=== PATIENT | male | born 1950 | race Caucasian/White ===

== ENCOUNTER 2018-09-19 08:03 | Emergency (ER) | payer MEDICARE, SELFPAY ==
[2018-09-19 08:04] VITALS: BP 142/80; PULSE 74; RESP 14; TEMP 36.7; O2SAT 98; BMI 25.3
[2018-09-19 08:15] VITALS: O2SAT 99
--- NOTE | 2018-09-19 08:20 | EKG12_ITS ---
Test Reason : DIZZINESS Blood Pressure : / mmHG Vent. Rate : 068 BPM Atrial Rate : 068 BPM P-R Int : 186 ms QRS Dur : 086 ms QT Int : 440 ms P-R-T Axes : 060 -12 023 degrees QTc Int : 467 ms Normal sinus rhythm Nonspecific ST and T wave abnormality Prolonged QT Abnormal ECG Confirmed by DAVID SWANSON, AMIRA ([id number]), society editor RAOUL SPRINGER ([id number]) on 09/25/2018 8:51:21 AM Referred By: CRISTIN Confirmed By:AMIRA HERNANDEZ MD
--- NOTE | 2018-09-19 08:22 | RAD_ITS ---
STUDY: X-RAY CHEST REASON FOR EXAM: Male, 67 years old. Chest pain and dizziness TECHNIQUE: Single AP portable view of the chest. COMPARISON: None. FINDINGS: The lungs are clear and expanded. There is no demonstrated pleural abnormality. Normal size heart. Normal mediastinum and yaneth. Normal visualized pulmonary arteries. Normal visualized aortic arch and descending thoracic aorta. Normal visualized thoracic spine. Normal visualized ribs, clavicles, and shoulders. There is no demonstrated abnormality of the visualized soft tissue structures of the upper abdomen. RAD/Chest 1 View (Portable) IMPRESSION: Normal x-ray examination of the chest. Electronically Signed: Madeleine Flowers, at 8:42 EST Tel , Service support ,
[2018-09-19] MEDS: 0.9% Normal Saline 1,000 ML 150 ML IV (08:30)
[2018-09-19 08:41] LABS: Basophil# 0.05 X10^3/uL; Basophil% 1.1 % (0-1); Eosinophil# 0.13 X10^3/uL; Eosinophils% 2.9 % (0-5); Hematocrit 42.3 % (40-54); Hemoglobin 13.6 g/dl (13.0-16.5); Lymphocyte % 18.1 % (19-41); Mean Corp Hgb Conc 32.2 g/gl (32-36); Mean Corpuscular Hgb 29.5 pg (27.0-32.0); Mean Corpuscular Volume 91.8 fL (80-94); Mean Platelet Vol. 8.8 fl (6.2-12.0); Monocyte# 0.39 X10^3/uL; Monocyte% 8.8 % (0-10); Neutrophil # 3.04 X10^3/uL (2.7-7.7); Neutrophil % 68.9 % (47-70); Platelet Count 144 K/mm3 (150-450); RBC Distribution Width CV 12.8 % (11.6-14.6); RBC Distribution Width SD 42.6 fl (35.1-43.9); Red Blood Count 4.61 M/mm3 (4.6-6.2); White Blood Count 4.4 K/mm3 (4.4-11.0)
[2018-09-19 08:42] LABS: POSITIVE COUNT NO; POSITIVE DIFFERENTIAL NO; POSITIVE MORPHOLOGY NO
[2018-09-19 08:54] LABS: Anion Gap 6 (5-15); BUN 18 mg/dL (7-18); BUN/Creat Ratio 20.1 RATIO (10-20); Calcium,Total 8.5 mg/dL (8.5-10.1); Chloride 107 mmol/L (98-107); Creatinine, Serum 0.89 mg/dL (0.70-1.30); EST Glomerular Filtration Rate 90 mL/min (>60); Est Glom Filt Rate - Afr Amer 109 mL/min (>60); Glucose 100 mg/dL (74-106); Potassium 4.2 mmol/L (3.5-5.1); Sodium Level 141 mmol/L (136-145)
[2018-09-19 09:21] VITALS: BP 140/74; PULSE 63; RESP 15; O2SAT 98
[2018-09-19 09:22] VITALS: BP 129/70; BP 132/83; BP 140/80; PULSE 59; PULSE 60; PULSE 64
--- NOTE | 2018-09-19 09:40 | ED.DCSUM_ITS ---
- ER Visit Summary Date of Service: 09/19/18 Chief Complaint: Chest pain History of Present Illness: The patient is a [address] Kelley. He has chest pain began 2 weeks ago. Some intermittent pain last minutes at a time. He describes it as dull and aching. 3-10 hours and is pain-free currently. He nothing makes this worse including exertion or breathing. She relieved by laying on the floor. He denies any associated nausea, vomiting, diaphoresis, shortness of breath. Does report that he gets lightheaded and palpitations. However, this does not seem to be at the same time he is having chest pain. Physical Examination: Vitals: Stable. Afebrile. General: Well-nourished and well-developed. Head: Normocephalic atraumatic. Neck: Supple, no lymphadenopathy. No JVD. Nontender. Cardiovascular: Regular rate and rhythm. No murmurs. Respiratory: No respiratory distress. Clear to auscultation bilaterally. Abdominal: Soft, nontender, nondistended, normal bowel sounds. No guarding, rebound, or peritoneal signs. Back: Nontender. Extremities: Nontender, no edema. Skin: Normal color, no rash. Neurologic: Alert and oriented ?3. Cranial nerves II through XII are intact. Normal strength and sensation. Psych: Normal affect. Test Results: EKG is sinus at [address] changes. His QTC is 467. There is no old EKG for comparison. Troponin is negative. Chem-7 is normal. CBC is more for platelets of 144 lymphs lites of 18. Chest x-ray is normal. Emergency Department Course and Treatment: Patient's resting comfortably. His orthostatic vital signs were negative he was given aspirin p.o. Treatment Plan: Had a prolonged discussion with patient that I feel that he needs a stress test. He does not want to be admitted to the hospital. He would like to have this done as an outpatient. He will be discharged instructions to follow-up his primary care physician as soon as possible to arrange a stress test. If he develops any further chest pain or symptoms prior to that he should return to emerge department be admitted for an inpatient stress test. He does understand this. Disposition: To home in improved and stable condition. Impression: 1. Atypical chest pain. 2. YANNI score 1. This note was generated with [employer] dictation software. It may contain incorrect words, spelling, and punctuation that were not noted in review of the chart prior to signing ED Disposition - Plan for ED Patient: Disposition: Home or Assisted Living Instructions: ED Chest Pain Atypical Unkn Cause Referrals: Sulema Jalloh MD [Primary Care Provider] - As soon as possible Additional Instructions: Take a baby aspirin every day.
[2018-09-19 10:22] VITALS: BP 141/81; PULSE 74; RESP 16; O2SAT 99
== END 2018-09-19 10:23 | disposition home or self-care (01) ==
LOC: ED 08:35
PROVIDERS: Emergency Provider Emergency Medicine; Family Provider Internal Medicine; PCP Internal Medicine
DX: R07.89 Other chest pain (principal); G47.33 Obstructive sleep apnea (adult) (pediatric)
CPT/HCPCS: 71045; 80048; 84484; 85025; 93005; 96360; 96361; 99285; J7030; A4216

== ENCOUNTER → 2019-08-05 06:15 | Outpatient (CLI) | payer MEDICARE, SELFPAY ==
--- NOTE | 2019-08-05 16:20 | STRESSREP_ITS ---
Stress Test Report Pharmacologic myocardial perfusion stress test. 68-year-old man with a history of chest tightness, shortness of breath and fatigue. Stress protocol: Resting EKG demonstrates sinus bradycardia with a rate of 53 bpm normal intervals are noted resting blood pressures 140/78 mmHg. 0.4 mg of regadenoson was infused per usual protocol followed Intravenous saline flush injection continuous EKG monitoring was performed. The maximum heart rate attained was 87 bpm which was 57% of maximum predicted heart rate the maximum workload was 1 metabolic equivalent. At rest there were no ST or T wave changes noted suggest abnormal flow reserve at peak infusion nonspecific ST-T wave changes were noted with no meet criteria for ischemia. Resting blood pressure was 140/78 final blood pressure 118/62. Myocardial perfusion protocol per 11.2 mCi of technetium 99m sestamibi was injected at rest. 0.4 mg of regadenoson was infused per usual protocol peak infusion 32.3 mCi of technetium 99m sestamibi was injected stress images were obtained stress and rest images were reconstructed and compared in the short axis vertical and horizontal long a xis. Gated images were also obtained Perfusion SPECT analysis: Review of the images demonstrate normal uptake of tracer noted in all areas of myocardium. The rest images similar demonstrate normal uptake of tracer noted in all areas of the myocardium. No areas of reversibility are noted suggest ischemia no previous infarct is noted. Gated SPECT analysis: The gated ejection fraction is noted to be 59%. Conclusion: Normal pharmacologic myocardial perfusion stress test. Preserved ejection fraction.
== END ==
PROVIDERS: Family Provider Family Medicine; PCP Family Medicine; Referring Provider Nurse Practitioner Family; Visit Provider Nurse Practitioner Family
DX: R06.02 Shortness of breath (principal); R07.89 Other chest pain; R00.2 Palpitations; R42 Dizziness and giddiness; R53.83 Other fatigue
CPT/HCPCS: 78452; 93017; A9500; A4216; J2785

== ENCOUNTER → 2019-09-27 | Outpatient (CLI) | payer MEDICARE, SELFPAY ==
--- NOTE | 2019-09-27 13:08 | RAD_ITS ---
STUDY: X-RAY - LUMBAR SPINE REASON FOR EXAM: Male, 68 years old. LBP RADIATING TO LEFT HIP TECHNIQUE: 3 view(s) of the lumbar spine were obtained. COMPARISON: None FINDINGS: Normal lumbar lordosis. There is no substantial scoliosis. There is a normal alignment of the vertebrae. There is multilevel endplate spondylosis of the lumbar vertebrae. There is multi-level degenerative disc disease with multi-level disc space narrowing. This is more significant at the L4-L5 and L5-S1. There is significant narrowing of disc space along with vacuum phenomenon. There is no demonstrated fracture. There is atherosclerotic calcification of the abdominal aorta without a demonstrated aneurysm. RAD/Lumbar Spine 2 or 3 Views IMPRESSION: Multilevel spondylosis/degenerative disease with no acute fracture or spondylolisthesis. Electronically Signed: Ailyn Corrigan MD at 1:37 EDT , Service support ,
== END | disposition home or self-care (01) ==
PROVIDERS: PCP Family Medicine; Referring Provider Nurse Practitioner Family; Visit Provider Nurse Practitioner Family
DX: M47.27 Other spondylosis with radiculopathy, lumbosacral region (principal); M51.17 Intervertebral disc disorders with radiculopathy, lumbosacral region; M46.96 Unspecified inflammatory spondylopathy, lumbar region
CPT/HCPCS: 72100

== ENCOUNTER 2021-08-10 10:11 | Outpatient (CLI) | payer MEDICARE, SELFPAY | END 2021-08-10 23:59 | disposition short-term general hospital (02) | PROVIDERS: PCP Internal Medicine; Visit Provider Physician Assistant Surgical | DX: Z20.822 Contact with and (suspected) exposure to COVID-19 (principal) | CPT/HCPCS: 87635; U0003; U0005 ==

== ENCOUNTER → 2024-02-22 | Outpatient (CLI) | payer MEDICARE, SELFPAY ==
--- NOTE | 2024-02-22 09:37 | RAD_ITS ---
HISTORY: DDD. TECHNIQUE: XR Spine Lumbar Min 4 Views. COMPARISON: 09/27/2019. FINDINGS: VERTEBRAE: Vertebral body heights preserved. Degenerative osteophytes and degenerative changes of the posterior elements at multiple levels. ALIGNMENT: Chronic 2 mm retrolisthesis of L4-5. No scoliosis. INTERVERTEBRAL DISCS: Mild intervertebral disc space narrowing of L4-5 and moderate intervertebral disc space narrowing L5-S1 again seen with degenerative endplate change. SOFT TISSUES: Moderate stool in the colon. RAD/L/S Spine Min 4 Views IMPRESSION: No acute fracture or dislocation identified in the lumbar spine. Multilevel degenerative change. Electronically Signed: Avani Shields MD at 9:12 EDT ,
== END | disposition home or self-care (01) ==
PROVIDERS: PCP Internal Medicine; Referring Provider Clinical Nurse Specialist Adult Health; Visit Provider Clinical Nurse Specialist Adult Health
DX: M51.36 Other intervertebral disc degeneration, lumbar region (principal)
CPT/HCPCS: 72110

== ENCOUNTER → 2024-12-03 | Outpatient (CLI) | payer MEDICARE, SELFPAY ==
--- NOTE | 2024-12-03 16:15 | MRI_ITS ---
PROCEDURE: BRAIN WITHOUT CONTRAST 12/03/2024 REASON FOR EXAM: EXPRESSIVE APHASIA TECHNIQUE: Noncontrast brain MRI. Multiplanar and multisequence images were obtained. COMPARISON: None. FINDINGS: Brain: Mild cerebral atrophy and chronic periventricular white matter disease. No evidence of acute hemorrhage or infarction. Ventricles: Consistent with the overall degree of cerebral atrophy. Major Intracranial Vessels: Normal flow voids. Sinuses: Clear. Mastoids: Clear. MRI/Brain without Contrast IMPRESSION: No acute intracranial abnormalities. Reading Location: [place] [id number]
== END | disposition home or self-care (01) ==
PROVIDERS: PCP Internal Medicine; Referring Provider Internal Medicine; Visit Provider Internal Medicine
DX: R47.01 Aphasia (principal)
CPT/HCPCS: 70551